=== PATIENT | male | born 1985 | race African-American/Black ===

== ENCOUNTER 2021-03-31 02:00 | Emergency (ER) | payer SELFPAY ==
[~2021-03-31] VITALS: Ht 177.8 cm; Wt 81.0 kg
[2021-03-31 02:25] VITALS: BP 135/91
== END 2021-03-31 02:34 | disposition left against medical advice (07) ==
LOC: ER 02:00
DX: R42 Dizziness and giddiness (principal); R56.9 Unspecified convulsions; Z91.19 Patient's noncompliance with other medical treatment and regimen; Z98.890 Other specified postprocedural states
CPT/HCPCS: 99283